=== PATIENT | male | born 1965 | race Caucasian/White ===

== ENCOUNTER 2022-05-11 10:56 | Emergency (ER) | payer OTHER ==
[~2022-05-11] VITALS: Ht 172.7 cm; Wt 77.1 kg
[2022-05-11 11:05] VITALS: BP 136/95
--- NOTE | 2022-05-11 13:35 | NUR ---
PATIENT ELOPED IN STABLE CONDITION
--- NOTE | 2022-05-11 13:35 | NUR ---
CT WAS NOT DONE, AWARE
== END 2022-05-11 13:53 | disposition left against medical advice (07) ==
LOC: ER 11:04
DX: M79.672 Pain in left foot (principal); I10 Essential (primary) hypertension
CPT/HCPCS: 73630-TC